=== PATIENT | male | born 1960 | race Caucasian/White ===

== ENCOUNTER 2021-04-06 13:14 | Inpatient (IN) | payer OTHER ==
[~2021-04-06] VITALS: Ht 152.4 cm; Wt 81.6 kg
[2021-04-06 13:44] VITALS: BP 112/92
[2021-04-06 14:45] LABS: ABSOLUTE NEUTROPHILS 6.6 thou/uL (1.4-8.2); EOSINOPHILS 3.5 % (0.0-3.0); HEMATOCRIT 48.1 % (42.0-52.0); HEMOGLOBIN 15.1 gm/dL (14.0-18.0); LYMPHOCYTES 21.7 % (24.0-44.0); MCH 27.9 pg (26.0-34.0); MCHC 31.4 g/dL (28.0-37.0); MCV 88.6 fL (80.0-100.0); MONOCYTES 9.6 % (1.0-8.0); PLATELET COUNT 307 thou/uL (150-400); POLYS 64.2 % (36.0-66.0); RBC 5.43 mil/uL (4.50-6.00); RDW 15.7 % (10.5-14.5); WBC 10.3 thou/uL (4.0-11.0)
[2021-04-06 14:46] LABS: CALCIUM 8.8 mg/dL (8.5-10.1); CREATININE 1.7 mg/dL (0.7-1.3); POTASSIUM 4.6 mmol/L (3.5-5.1)
[2021-04-06 14:55] LABS: ALBUMIN 3.5 g/dL (3.4-5.0); MAGNESIUM 2.2 mg/dL (1.8-2.4); TOTAL BILIRUBIN 0.6 mg/dL (0.2-1.0); TOTAL PROTEIN 7.2 g/dL (6.4-8.2)
[2021-04-06] MEDS ORDERED: NOHOMEMEDICATIONS (15:34)
[2021-04-06 16:48] LABS: URINE BILIRUBIN NEGATIVE (Negative); URINE BLOOD NEGATIVE (Negative); URINE CLARITY CLEAR; URINE COLOR YELLOW; URINE GLUCOSE-RANDOM* NEGATIVE (Negative); URINE KETONES NEGATIVE (Negative); URINE LEUKOCYTES-REFLEX NEGATIVE (Negative); URINE NITRITE-REFLEX NEGATIVE (Negative); URINE PROTEIN (DIPSTICK) NEGATIVE (Negative); URINE UROBILINOGEN 0.2 E.U./dl (0.2-1.0)
[2021-04-06 16:50] VITALS: BP 129/90
[2021-04-06 19:26] VITALS: BP 140/95
--- NOTE | 2021-04-06 19:40 | NUR ---
Pt. arrived to the unit fro the emergency room accompanied by and ER staff. He is alert and oriented and is on room air. He offers no c/o shortness of air. Admission assessment and history is completed.
[2021-04-06 20:00] VITALS: BP 147/90
--- NOTE | 2021-04-07 04:05 | NUR ---
Pt. rested quietly at intervals during the night. Prn Xanax given for anxiety (see emar) with some relief noted. He did spit up a small mucous plug of blood. Breathing treatments administered which have been helpful with his breathing. Lower legs being elevated. Bed alarm is on as pt. is a little shakey from the steriods. Urinating without difficulty.
[2021-04-07 05:16] LABS: CALCIUM 8.4 mg/dL (8.5-10.1); CREATININE 1.5 mg/dL (0.7-1.3); POTASSIUM 4.2 mmol/L (3.5-5.1)
[2021-04-07 08:41] VITALS: BP 127/84
--- NOTE | 2021-04-07 12:18 | NUR ---
ASSUMED PT CARE THIS AM. PT A&OX4, ABLE TO MAKE NEEDS KNOWN. PATIENT HAS A COUGH. WHEEZES NOTED IN LUNG BASES. IV PATENT, FLUIDS INFUSING. PATIENT REMAINS CONTINENT, USING A URINAL NEEDED. PATIENT REMAINS ON ROOM AIR. MEDICATIONS TAKEN WITHOUT ISSUE. PATIENT REPORTS CONSTIPATION, GAVE SUPPOSITORY. FALL PRECAUTIONS ARE IN PLACE, CALL LIGHT WITHIN REACH.
--- NOTE | 2021-04-07 15:08 | EKG ---
[address] [address] ELECTROCARDIOGRAM REPORT Name: CORIE MELENDEZ Room #: 459- ADM IN M.R.#: [id number] Admission: 04/06/21 Attend Phys: Janes Cabrales MD Discharge: Date of : 58 Report #: [id number] [facility] ED Test Date: 2021-04-06 Test Time: 14:04:15 Pat Name: CORIE MELENDEZ Department: Room: 459 P Gender: M Business Director: SONYA : 1960 Requested By: Farheen Ware Order Number: [id number] : Dat Arellano Measurements Intervals [place] Rate: 123 P: 46 AL: 150 QRS: -26 QRSD: 81 T: 127 QT: 310 QTc: 444 Interpretive Statements Sinus tachycardia Atrial premature complex Probable left atrial enlargement Borderline left axis deviation Nonspecific T abnormalities, lateral leads Baseline wander in lead(s) I,II,aVR,V3 No previous ECG available for comparison Electronically Signed On 04-07-2021 15:08:11 CDT by Dat Arellano [email or web address] <ELECTRONICALLY SIGNED> By: Dat Arellano MD, [facility] 04/07/21 1508 1404 1404 Dat Arellano MD, [facility] /EPI
--- NOTE | 2021-04-07 15:32 | NUR ---
PT ADMITTED RELATED TO RLL PNEUMONIA, OLIVIA, AND EDEMA. CM REVIEWED CHART AND SPOKE WITH CARE TEAM. CM MET WITH PT AND SPOUSE AT BEDSIDE THIS DAY. PT APPEARED TO BE A&0 X4. CM ROLE INTRODUCED. PT INDICATED HE AND SPOUSE LIVE IN A HOUSE WITH 3 STEPS TO ENTER AND NO STEPS INSIDE. 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 PT INDICATED NO DME OR HH HX. PT WITHOUT PCP. PT WAS SEEN BY KAREN WITH [facility]. CM INDICATED THAT CM CAN PROVIDE SAFTEY NET CLINIC PACKET FOR ESTABLISHING WITH FOLLOW UP CARES UPON DC. PT WILL LIKELY NEED MEDICATIONS VOUCHERED UPON DC. CM FOLLOWING REGARDING DC PLANNING. CARE TEAM INDICATED THAT PT WILL LIKELY BE DC READY TOMORROW WEDNESDAY.
== END 2021-04-07 18:11 | disposition left against medical advice (07) | DRG 193 ==
LOC: ER 13:14 → EROBS 17:23 → 4W 19:29
PROVIDERS: Physician Assistant; ADMIT Internal Medicine; ATTEND Internal Medicine
DX: J18.9 Pneumonia, unspecified organism (principal); J96.01 Acute respiratory failure with hypoxia; J44.0 Chronic obstructive pulmonary disease with (acute) lower respiratory infection; J44.1 Chronic obstructive pulmonary disease with (acute) exacerbation; N17.9 Acute kidney failure, unspecified; I10 Essential (primary) hypertension; Z20.822 Contact with and (suspected) exposure to COVID-19; Z79.899 Other long term (current) drug therapy; Z53.29 Procedure and treatment not carried out because of patient's decision for other reasons; F17.210 Nicotine dependence, cigarettes, uncomplicated; E66.01 Morbid (severe) obesity due to excess calories; Z68.35 Body mass index [BMI] 35.0-35.9, adult
CPT/HCPCS: 10045

== ENCOUNTER 2021-04-17 23:25 | Inpatient (IN) | payer OTHER ==
[~2021-04-17] VITALS: Ht 175.3 cm; Wt 135.7 kg
[~2021-04-17 23:25] MED LIST: NOHOMEMEDICATIONS
[2021-04-17 23:28] VITALS: BP 142/98
[2021-04-18 00:17] LABS: ABSOLUTE NEUTROPHILS 10.5 thou/uL (1.4-8.2); BASOPHILS 0.9 % (0.0-2.0); EOSINOPHILS 0.3 % (0.0-3.0); HEMATOCRIT 47.6 % (42.0-52.0); HEMOGLOBIN 15.3 gm/dL (14.0-18.0); LYMPHOCYTES 13.6 % (24.0-44.0); MCH 28.1 pg (26.0-34.0); MCHC 32.2 g/dL (28.0-37.0); MCV 87.4 fL (80.0-100.0); MONOCYTES 7.4 % (1.0-8.0); PLATELET COUNT 295 thou/uL (150-400); POLYS 77.8 % (36.0-66.0); RBC 5.45 mil/uL (4.50-6.00); WBC 13.5 thou/uL (4.0-11.0)
[2021-04-18 00:54] LABS: CALCIUM 7.4 mg/dL (8.5-10.1); CREATININE 1.6 mg/dL (0.7-1.3); POTASSIUM 5.4 mmol/L (3.5-5.1)
--- NOTE | 2021-04-18 06:53 | NUR ---
ATTEMPTED REPORT AT 0653 WHICH WAS REFUSED BY RECEIVING FLOOR. THEY HAVE RECEIVED A FAXED COPY OF ED HANDOFF SUMMARY. I GAVE REPORT TO AM ARCHITECTURAL MANAGERANDREIA HU.
[2021-04-18 07:20] VITALS: BP 133/91
[2021-04-18 08:30] VITALS: BP 143/96
--- NOTE | 2021-04-18 09:19 | EKG ---
[address] [place] [address] ELECTROCARDIOGRAM REPORT Name: CORIE MELENDEZ Room #: 457-P ADM IN M.R.#: [id number] Admission: 04/18/21 Attend Phys: Janes Cabrales MD Discharge: Date of : 58 Report #: [id number] [facility] ED Test Date: 2021-04-18 Test Time: 00:22:50 Pat Name: CORIE MELENDEZ Department: Room: [facility] Gender: M Information Delivery Analyst: karan wilkes : 1960 Requested By: Kev King Order Number: [id number] MD: Praneeth Han Measurements Intervals [place] Rate: 115 P: 44 RI: 163 QRS: -25 QRSD: 85 T: 122 QT: 311 QTc: 430 Interpretive Statements Sinus tachycardia Probable left atrial enlargement Borderline left axis deviation Nonspecific T abnormalities, lateral leads Baseline wander in lead(s) II,III,aVF Compared to ECG 04/06/2021 14:04:15 Atrial premature complex(es) no longer present T-wave abnormality still present Electronically Signed On 04-18-2021 9:19:21 CDT by Praneeth Han [email or web address] <ELECTRONICALLY SIGNED> By: Praneeth Han MD 04/18/2119 Praneeth Han MD /EPI
[2021-04-18 11:27] VITALS: BP 135/90
--- NOTE | 2021-04-18 11:35 | NUR ---
New to unit,DX COPD, SOA and CHF. Cm visited with ade at bedside. Intro to cm and dcp. Spoke with Kim via phone call, # . He was just here on 04/07 and left AMA. He lives at home with spouse, he independent when feeling ok, not been able to work in while, no insurance, needs to talk with [employer] about disability. Has nebulizer at home but no medication to go in it, no home oxygen. Drives. No rehab or hh in the past. No anticipated dc over the weekend.
--- NOTE | 2021-04-18 14:34 | 2DMMODE ---
[facility] [address] [place] [address] 2 D/M-MODE ECHOCARDIOGRAM Name: CORIE MELENDEZ Seng Room #: 457-P ADM IN M.R.#: [id number] Admission: 04/18/21 Attend Phys: Janes Cabrales MD Discharge: Date of : 58 Report #: [id number] THIS REPORT FOR: cc: FAM - No family physician/PCP FAM - No family physician/PCP Praneeth Han MD ~ APPROVED REPORT Study performed: 04/18/2021 13:40:11 EXAM: Comprehensive 2D, Doppler, and color-flow Echocardiogram Patient Location: Bedside Room #: [facility] Status: routine BSA: 2.08 HR: 112 bpm BP: 135/90 mmHg Rhythm: Tachycardia Other Information Study Quality: Good Indications Congestive Heart Failure COPD Dyspnea Cardiomyopathy 2D Dimensions RVDd: 50.07 mm IVSd: 8.80 (7-11mm) LVOT Diam: 20.44 (18-24mm) LVDd: 59.98 mm PWd: 8.42 (7-11mm) Ascending Ao: 28.67 (22-36mm) LVDs: 55.05 (25-40mm) Left Atrium: 40.66 (27-40mm) Aortic Root: 31.25 mm IVC: 25.00 mm Volumes Left Atrial Volume (Systole) Single Plane 4CH: 69.20 mL Single Plane 2CH: 53.40 mL LA ESV Index: 32.00 mL/m2 Aortic Valve AoV Peak Andrey.: 0.86 m/s [facility] [address] [place] [address] 2 D/M-MODE ECHOCARDIOGRAM Name: CORIE MELENDEZ Room #: 457-P ADM IN [place].#: [id number] Admission: 04/18/21 Attend Phys: Janes Cabrales MD Discharge: Date of : 58 Report #: [id number] AO Peak Gr.: 2.98 mmHg LVOT Max P.37 mmHg LVOT Max V: 0.59 m/s LETTY Vmax: 2.22 cm2 Pulmonary Valve PV Peak Andrey.: 0.69 m/s PV Peak Gr.: 1.91 mmHg Tricuspid Valve TR Peak Andrey.: 2.82 m/s TR Peak Gr.: 31.87 mmHg PA Pressure: 42.00 mmHg Left Ventricle Left ventricle is dilated. There is severe global hypokinesis of the left ventricle. There is normal left ventricular wall thickness. Left ventricular ejection fraction is severely decreased. LVEF is 20-25%. The diastolic function is abnormal. Right Ventricle Right ventricle is dilated. Atria Left atrium is mildly dilated. Right atrium is dilated. Aortic Valve The aortic valve is normal in structure. No aortic regurgitation is present. There is no aortic valvular stenosis. Mitral Valve The mitral valve is normal in structure. Moderate to severe mitral regurgitation No evidence of mitral valve stenosis. Tricuspid Valve The tricuspid valve is normal in structure. There is moderate tricuspid regurgitation. Estimated PAP 40 mmHg. There is moderate pulmonary hypertension. Pulmonic Valve The pulmonary valve is normal in structure. There is no pulmonic valvular regurgitation. Great Vessels The aortic root is normal in size. IVC is dilated and collapses <50% with inspiration. Pericardium [facility] [address] [place] [address] 2 D/M-MODE ECHOCARDIOGRAM Name: CORIE MELENDEZ Room #: 457-P ADM IN M.R.#: [id number] Admission: 04/18/21 Attend Phys: Janes Cabrales MD Discharge: Date of : 58 Report #: [id number] There is no pericardial effusion. <Conclusion> Left ventricle is dilated. There is normal left ventricular wall thickness. Left ventricular ejection fraction is severely decreased. Right ventricle is dilated. Left atrium is mildly dilated. The aortic valve is normal in structure. Moderate to severe mitral regurgitation There is moderate tricuspid regurgitation. Estimated PAP 40 mmHg. <ELECTRONICALLY SIGNED> By: Praneeth Han MD 04/18/21 1434 1434 143 Praneeth Han MD /INF
--- NOTE | 2021-04-18 15:17 | NUR ---
Pt arrived to floor from emergency room per cart at 0825 in stable condition. Assessment completed.vss. Admission hx and car plan completed.Pt tolerated meds and diet.Around 1500,pt had panic attack and wanted somthing to relax him Dr Cabrales notified ,order received.Xanax given with relief.RT came and breathing tx given. Will continue to monitor.
[2021-04-18 15:36] VITALS: BP 118/92
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
[2021-04-18 19:45] LABS: CALCIUM 8.6 mg/dL (8.5-10.1); CREATININE 1.8 mg/dL (0.7-1.3)
[2021-04-18 19:46] LABS: POTASSIUM 4.4 mmol/L (3.5-5.1)
[2021-04-18 21:10] VITALS: BP 112/81
[2021-04-18 23:41] VITALS: BP 142/77
[2021-04-19] VITALS (39 sets, daily range): BP systolic 56–124; BP diastolic 10–83
--- NOTE | 2021-04-19 03:42 | NUR ---
ASSUMED CARE OF PT AT SHIFT CHANGE. PT IS AOX4 AND LETS NEEDS BE KNOWN. FALL PRECAUTION IN PLACE. 2L O2 VIA NC CONTINUED. PT DENIED PAIN AND NAUSEA. PT REPORTED ANXIETY AND HAVING PANIC ATTACKS; OT ATIVAN ORDERED AND GIVEN. PT REPORTS BEING CONSTIPATED. PT WAS ABLE TO GET COMFORTABLE AND SLEEP PART OF THE SHIFT. VSS AND NO S/S OF ACUTE DISTRESS. WILL CONTINUE TO MONITOR.
[2021-04-19 06:02] LABS: ABSOLUTE NEUTROPHILS 17.3 thou/uL (1.4-8.2); BASOPHILS 0.2 % (0.0-2.0); HEMATOCRIT 49.4 % (42.0-52.0); HEMOGLOBIN 15.9 gm/dL (14.0-18.0); LYMPHOCYTES 5.4 % (24.0-44.0); MCH 28.2 pg (26.0-34.0); MCHC 32.2 g/dL (28.0-37.0); MCV 87.5 fL (80.0-100.0); MONOCYTES 2.3 % (1.0-8.0); PLATELET COUNT 253 thou/uL (150-400); POLYS 92.1 % (36.0-66.0); RBC 5.65 mil/uL (4.50-6.00); WBC 18.8 thou/uL (4.0-11.0)
[2021-04-19 06:42] LABS: POTASSIUM 4.6 mmol/L (3.5-5.1)
--- NOTE | 2021-04-19 11:23 | EKG ---
[place] [address] [facility] [place] [address] ELECTROCARDIOGRAM REPORT Name: CORIE MELENDEZ Room #: 457-P ADM IN M.R.#: [id number] Admission: 04/18/21 Attend Phys: Janes Cabrales MD Discharge: Date of : 58 Report #: [id number] [facility] Test Date: 2021-04-19 Test Time: 10:15:05 Pat Name: CORIE MELENDEZ Department: Room: 457 P Gender: M Career And Transition Teacher: JACKIE : 1960 Requested By: Praneeth Han Order Number: [id number] MD: Praneeth Han Measurements Intervals [place] Rate: 88 P: 63 OR: 157 QRS: -11 QRSD: 89 T: 158 QT: 414 QTc: 501 Interpretive Statements Sinus rhythm Ventricular premature complex Probable left atrial enlargement Abnrm T, consider ischemia, anterolateral lds Prolonged QT interval Baseline wander in lead(s) I,II,aVR,aVL,aVF,V1,V2,V3,V4,V5,V6 Compared to ECG 04/18/2021 00:22:50 No significant change Electronically Signed On 04-19-2021 11:23:42 CDT by Praneeth Han [email or web address] <ELECTRONICALLY SIGNED> By: Praneeth Han MD 04/19/21 1123 1015 1015 Praneeth Han MD /EPI
--- NOTE | 2021-04-19 13:33 | NUR ---
Assumed pt care at 7am. Pt in and out of bed to bathroom with sba.Assessment completed.vss. Hr was in the 90's per cardiac technologist. Dr Han and Keron here,order noted.Pt took shower and had large bm after given dulcolax supp. At 1255,pt was up in chair and stated that he wanted to go home. Rn encouraged pt to stay and received iv antibiotic and get well this admission before dc home. Dr Cabrales notified.At 1300,electrical project manager was with pt replacing cardiac technologist.Pt was urinating on the floor. and passed out. After giving sternal rubb,pt woke up.At 1307,code blue activated when pt became unresponsive and had no pulse. See code blue summary for details.At 1333,pt sent to icu. Report given to Vargas wilkes in icu.Pt called but no response. message left.
--- NOTE | 2021-04-19 14:54 | NUR ---
VAT PLACED LT TLIJ FOR SP CODE.
[2021-04-19 16:12] LABS: BE(vivo) -2.3 mmol/L (-2 to +3); PCO2 41.5 mmHg (35.0-45.0); PO2 330.1 mmHg (80.0-100.0); pH 7.362 (7.360-7.450); sO2 99.7 % (92.0-98.0)
--- NOTE | 2021-04-19 16:38 | NUR ---
PATIENT ARRIVED TO ICU AT 1345 ON VENTILATOR. PATIENT'S BELONGINGS ACCOUNTED FOR.
--- NOTE | 2021-04-19 18:55 | HC ---
[facility] [place] [address] CONSULTATION Name: CORIE MELENDEZ Room #: 244-P ADM IN M.R.#: [id number] Admission: 04/18/21 Attend Phys: Janes Cabrales MD Discharge: Date of : 58 Report #: [id number] THIS REPORT FOR: cc: DANDRE - No family physician/PCP FAM - No family physician/PCP Praneeth Han MD ~ DATE OF SERVICE: 04/19/2021 CARDIOLOGY CONSULTATION INDICATION: Nonsustained VT. HISTORY OF PRESENT ILLNESS: This is a 60-year-old gentleman with a history of COPD, CVA, noncompliance, hypertension and tobacco abuse, who was admitted for shortness of breath and lower extremity edema. He had previously been admitted a week ago for the same indication, but signed out AMA. Apparently, he had a similar situation over at [facility]. Over the past several months, he has noticed increasing dyspnea with minimal activities as well as orthopnea. There is no history of chest pains, fever, nausea or diarrhea. He does admit to constipation. An echo revealed severe LV dysfunction with moderately severe mitral regurgitation. He was started on Lasix with an improvement in symptoms. On telemetry, he did have nonsustained VT, clinically asymptomatic. PAST MEDICAL HISTORY: COPD, CVA, hypertension, noncompliance. ALLERGIES: None. HOME MEDICATIONS: None. SOCIAL HISTORY: Positive tobacco use, maybe half a pack to 1 pack per day. FAMILY HISTORY: Negative for premature CAD. REVIEW OF SYSTEMS: A full 10-point review of systems performed. Only the pertinent positives and negatives are described in the HPI. PHYSICAL EXAMINATION: VITAL SIGNS: Blood pressure is 100/70, heart rate is 80 beats per minute. GENERAL APPEARANCE: This is a well-developed, well-nourished male in no acute respiratory distress. HEENT: Normocephalic, atraumatic. Oral mucosa moist. NECK: Supple. LUNGS: Diminished breath sounds diffusely, few rhonchi. CARDIAC: Regular rate and rhythm, S1, S2 positive, 1/6 systolic murmur. ABDOMEN: Soft, nontender. EXTREMITIES: 1-2+ bilateral lower extremity edema. [facility] [address] [place] [address] CONSULTATION Name: CORIE MELENDEZ Room #: 244-P ADM IN M.R.#: [id number] Admission: 04/18/21 Attend Phys: Janes Cabrales MD Discharge: Date of : 58 Report #: [id number] ECG reveals sinus tachycardia, nonspecific T-wave abnormality. LABORATORY VALUES: White count is 18.8, hemoglobin is 15.9. Creatinine was 1.6, now 2.0. Troponin is negative x 2. ASSESSMENT AND PLAN: 1. Congestive heart failure, this is the first diagnosis for this patient. Echo findings reveal severe left ventricular dysfunction, etiology unknown at this time. Initial troponin level was negative, and there are no acute ST segment changes. We will eventually need an ischemic evaluation, although an angiogram would be difficult as his creatinine is rising. May need to undergo a pharmacologic nuclear stress test. 2. Cardiomyopathy, will start on guideline directed medical therapy including beta linette and DENNY inhibitor. Since the creatinine is rising, would not start an DENNY inhibitor at this time. 3. Nonsustained ventricular tachycardia. Clinically, asymptomatic. We will start with beta linette therapy at this time. Keep potassium greater than 4.0. 4. Edema, improved with diuretic therapy, would lower the dose of Lasix in view of low blood pressure. 5. Chronic obstructive pulmonary disease, complete smoking cessation advised. Consider pulmonary evaluation. 6. Noncompliance, discussed the importance of compliance. <ELECTRONICALLY SIGNED> By: Praneeth Han MD 04/19/21 1855 0741 0801 Praneeth Han MD /nt
[2021-04-20] VITALS (83 sets, daily range): BP systolic 47–137; BP diastolic 22–91
[2021-04-20 04:27] LABS: CALCIUM 8.3 mg/dL (8.5-10.1); CREATININE 2.2 mg/dL (0.7-1.3); MAGNESIUM 2.2 mg/dL (1.8-2.4); POTASSIUM 3.8 mmol/L (3.5-5.1)
[2021-04-20 04:33] LABS: HEMATOCRIT 46.5 % (42.0-52.0); HEMOGLOBIN 15.2 gm/dL (14.0-18.0); MCH 28.3 pg (26.0-34.0); MCHC 32.7 g/dL (28.0-37.0); MCV 86.7 fL (80.0-100.0); RBC 5.36 mil/uL (4.50-6.00); RDW 15.4 % (10.5-14.5); WBC 18.1 thou/uL (4.0-11.0)
[2021-04-20 08:09] LABS: BE(vivo) 5.1 mmol/L (-2 to +3); HCO3 28.5 mmol/L (22.0-26.0); PCO2 38.1 mmHg (35.0-45.0); PO2 79.6 mmHg (80.0-100.0); pH 7.492 (7.360-7.450); sO2 96.6 % (92.0-98.0)
--- NOTE | 2021-04-20 11:53 | EKG ---
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: ZZ : 1960 Requested By: Janes Cabrales Order Number: [id number] MD: Praneeth Han Measurements Intervals [place] Rate: 79 P: 34 WV: 151 QRS: -2 QRSD: 195 T: 193 QT: 479 QTc: 550 Interpretive Statements Sinus rhythm Ventricular premature complex T wave inversions in the anterolateral leads, rule out ischemia Compared to ECG 04/19/2021 14:01:01 Ischemia present Electronically Signed On 04-20-2021 11:53:43 CDT by Praneeth Han [email or web address] <ELECTRONICALLY SIGNED> By: Praneeth Han MD 04/20/21 1153 2140 2140 MD ARABELLA Beard
--- NOTE | 2021-04-20 11:56 | EKG ---
[place] [address] [facility] [place] [address] ELECTROCARDIOGRAM REPORT Name: CORIE MELENDEZ Room #: 244-P ADM IN M.R.#: [id number] Admission: 04/18/21 Attend Phys: Janes Cabrales MD Discharge: Date of : 58 Report #: [id number] [facility] Test Date: 2021-04-19 Test Time: 14:01:01 Pat Name: CORIE MELENDEZ Department: Room: 244 P Gender: M Guidance Services Coordinator: SG : 1960 Requested By: Janes Cabrales Order Number: [id number] MD: Praneeth Han Measurements Intervals [place] Rate: 89 P: 45 GA: 161 QRS: -25 QRSD: 88 T: 147 QT: 434 QTc: 529 Interpretive Statements Sinus rhythm Multiple ventricular premature complexes Probable left atrial enlargement Borderline left axis deviation Low voltage, extremity leads Abnrm T, consider ischemia, anterolateral lds Prolonged QT interval Baseline wander in lead(s) I,II,aVR Compared to ECG 04/19/2021 10:15:05 Low QRS voltage now present Possible ischemia still present Electronically Signed On 04-20-2021 11:56:28 CDT by Praneeth Han [email or web address] <ELECTRONICALLY SIGNED> By: Praneeth Han MD 04/20/21 1156 1401 1401 Praneeth Han MD /EPI
[2021-04-20 13:56] LABS: CALCIUM 8.2 mg/dL (8.5-10.1); CREATININE 2.2 mg/dL (0.7-1.3); POTASSIUM 3.8 mmol/L (3.5-5.1)
[2021-04-20 17:08] LABS: URINE BILIRUBIN NEGATIVE (Negative); URINE BLOOD 3+ (Negative); URINE CLARITY CLEAR; URINE COLOR YELLOW; URINE GLUCOSE-RANDOM* NEGATIVE (Negative); URINE KETONES NEGATIVE (Negative); URINE LEUKOCYTES-REFLEX NEGATIVE (Negative); URINE NITRITE-REFLEX NEGATIVE (Negative); URINE PROTEIN (DIPSTICK) NEGATIVE (Negative); URINE UROBILINOGEN 0.2 E.U./dl (0.2-1.0)
[2021-04-20 17:21] LABS: URIC ACID CRYSTALS >10 Many /LPF (None Seen)
[2021-04-20 17:22] LABS: BACTERIA-REFLEX None Seen /HPF (None Seen); CASTS None Seen /LPF (None Seen); SQUAMOUS None Seen /LPF (0-3); URINE RBC >20 Many /HPF (NONE SEEN); URINE WBC-REFLEX 0-5 Rare /HPF (0-5)
--- NOTE | 2021-04-20 19:07 | NUR ---
PT IS SLOWLY PROGRESSING TO THE PLAN OF CARE EVIDENCED BY DECREASED OXYGENATION NEED. LEVOPHED TURNED OFF.
--- NOTE | 2021-04-20 22:53 | NUR ---
PT SLOWLY PROGRESSING TOWARDS POC. LEVO IS OFF WITH MAP>60 BP 99/60'S, AFEBRILE. INFUSING PROPOFOL @ 10 MCG/KG/MIN, FENTANAYL @ 50 MCG/HR VIA LEFT TL IJ. UO ADEQUATE AMTS, DK YELLOW. MINIMAL AMTS OF ETT SECRETIONS, THIN AND BLOOD TINGED. SCANT AMTS OF ORAL SECRETIONS. VENT SETTINGS: PEE8, RATE 16, TV 550, AND FIO2 30%. FOLLOWS SIMPLE COMMANDS, SQUEEZE FINGERS BILATERALLY, RAISE LE AND NODS APPROPRIATELY YES/NO. SR WITH OCCASSIONAL PVC'S. ISOLATION FOR MRSA IN NARES. OG WITH LIS. WILL CONTINUE TO MONITOR.
[2021-04-21] VITALS (41 sets, daily range): BP systolic 9–108; BP diastolic 60–78
[2021-04-21 03:46] LABS: ABSOLUTE NEUTROPHILS 14.8 thou/uL (1.4-8.2); BASOPHILS 0.1 % (0.0-2.0); HEMATOCRIT 42.7 % (42.0-52.0); HEMOGLOBIN 13.7 gm/dL (14.0-18.0); LYMPHOCYTES 2.5 % (24.0-44.0); MCH 28.2 pg (26.0-34.0); MCHC 32.1 g/dL (28.0-37.0); MONOCYTES 2.9 % (1.0-8.0); POLYS 94.5 % (36.0-66.0); RBC 4.86 mil/uL (4.50-6.00); RDW 15.7 % (10.5-14.5); WBC 15.7 thou/uL (4.0-11.0)
[2021-04-21 03:47] LABS: PLATELET COUNT 157 thou/uL (150-400)
[2021-04-21 04:02] LABS: ALBUMIN 2.6 g/dL (3.4-5.0); CALCIUM 8.1 mg/dL (8.5-10.1); CREATININE 1.9 mg/dL (0.7-1.3); MAGNESIUM 2.5 mg/dL (1.8-2.4); POTASSIUM 3.7 mmol/L (3.5-5.1); TOTAL BILIRUBIN 0.9 mg/dL (0.2-1.0); TOTAL PROTEIN 4.9 g/dL (6.4-8.2)
[2021-04-21 05:11] LABS: HCO3 29.2 mmol/L (22.0-26.0); PCO2 45.7 mmHg (35.0-45.0); PO2 76.2 mmHg (80.0-100.0); pH 7.423 (7.360-7.450); sO2 95.4 % (92.0-98.0)
--- NOTE | 2021-04-21 07:00 | NUR ---
RECEIVED OT EVALUATION ORDER. CODE BLUE CALLED AND PATIENT INTUBATED AND IS NOW IN THE ICU. WILL PLACE PATIENT ON HOLD AND AWAIT NEW ORDERS WHEN PATIENT IS MEDICALLY APPROPRIATE.
--- NOTE | 2021-04-21 08:18 | NUR ---
Pt TRANSFERRED TO ICU. WILL PLACE ON HOLD AND AWAIT NEW ORDERS WHEN APPROPRIATE
--- NOTE | 2021-04-21 11:00 | NUR ---
Discussed during los and unit rounds. Required intubation 04/19 and moved from 4w to ICU. Nutritional support. Requested for dpoa packet, education that must be off vent or wake to make his needs know. Will cont. following as needed for dc needs.
--- NOTE | 2021-04-21 11:30 | NUR ---
Patient's sister, Jazlyn Kahn, updated on patient condition and plan of care. Questions answered.
[2021-04-22] VITALS (32 sets, daily range): BP systolic 73–128; BP diastolic 50–94
[2021-04-22 05:20] LABS: CALCIUM 8.4 mg/dL (8.5-10.1); CREATININE 1.7 mg/dL (0.7-1.3); HEMATOCRIT 42.9 % (42.0-52.0); HEMOGLOBIN 13.7 gm/dL (14.0-18.0); MCHC 31.9 g/dL (28.0-37.0); MCV 87.6 fL (80.0-100.0); POTASSIUM 4.2 mmol/L (3.5-5.1); RBC 4.9 mil/uL (4.50-6.00); RDW 15.8 % (10.5-14.5); WBC 13.2 thou/uL (4.0-11.0)
--- NOTE | 2021-04-22 08:49 | NUR ---
ASSUMED CARE OF PT AT 0700. CARDIOLOGY AT BEDSIDE AT 0845. NO NEW ORDERS GIVEN AT THIS TIME.
--- NOTE | 2021-04-22 13:18 | NUR ---
PT SELF EXTUBATED AT 1315. O2 SATURATION AT 96% ON 2L NC.
--- NOTE | 2021-04-22 15:31 | NUR ---
UPDATED PT GIRLFRIEND FITZ AND SISTER CHILANGO ON PATEINTS CURRENT CONDITION. ANSWERED ALL QUESTIONS.
[2021-04-23] VITALS (12 sets, daily range): BP systolic 104–123; BP diastolic 75–87
--- NOTE | 2021-04-23 07:59 | NUR ---
ASSUMED CARE AT 1900. PT TOLERATING ORAL LIQUIDS WITHOUT ISSUE OVERNIGHT. AFEBRILE, IMPROVING MENTAL STATUS OVERNIGHT. PT READY TO EAT BREAKFAST THIS MORNING. HAD A 5-BEAT BURST SVT AND A 10 BEAT BURST SVT OVERNIGHT, PT DENIED CHEST PAIN OR SOB DURING THESE EVENTS. PT PROGRESSING TOWARDS GOALS.
--- NOTE | 2021-04-23 10:34 | NUR ---
PT IS PROGRESSING TOWARDS DISCHARGE, TOLERATING OFF OF VENTILATION, CURRENTLY ON 2L/NC, LUNG SOUNDS ARE COARSE BUT SATTING WELL. HEMATURIA NOTED DURING PUSHCART PEDDLER, NOTICED BY CARDIOLOGY, UNKNOWN ONSET PER THIS RN BUT WAS REPORTED TO CARDIOLOGY, NOW BEING LOOKED AT, UROLOGY CONSULTED, SAMI HU CALLED AT 1030 SPOKE OVER, CBC/BMP ENROUTE, SAW THE PATIENT, PER CARDIOLOGY WILL MOVE FORTH WITH CARDIAC CATH ONCE RENAL/UROLOGY CLEARS PATIENT. DPOA/SISTER CHILANGO CALLED, WANTED UPDATES, UPDATES PROVIDED, VERBALIZED SATIFSFACTION, WANTED RN TO COMMUNICATE TO PT THAT HE IS LOVED AND CARED FOR, PT REPORTED TO, PT ALSO VERBALIZING LOVING STAFF MEMBERS AND WANTING TO MOVE DOWN TO THE FLOOR WHEN POSSIBLE. AWAITING ON PULMONLOGIST'S DISCRETION TO TRANSFER. CONTINUING TO MONITOR.
[2021-04-23 10:52] LABS: HEMATOCRIT 46.7 % (42.0-52.0); HEMOGLOBIN 14.6 gm/dL (14.0-18.0); MCH 27.5 pg (26.0-34.0); MCHC 31.2 g/dL (28.0-37.0); MCV 88.1 fL (80.0-100.0); RBC 5.3 mil/uL (4.50-6.00)
[2021-04-23 11:12] LABS: CALCIUM 8.2 mg/dL (8.5-10.1); CREATININE 1.9 mg/dL (0.7-1.3); POTASSIUM 4.5 mmol/L (3.5-5.1)
--- NOTE | 2021-04-23 12:03 | NUR ---
Acute on chronic hypoxic respiratory failure now on 2L via NC and sats between 95-98%. Continues on broad spectrum antibiotics and IF for follow up cultures. Per cardiology noted as cardiac arrest with PEA managed with CPR/ACLS. Notably history of 2 previous AMA departures. S/O Allie Aldana at [phone] remains updated on condition by both nursing and MD teams. Per attending MD AM review: No change in care at this time. CM will follow for discharge needs once identified after MD review and therapy evaluations. CM asked for MD to place therapy orders.
[2021-04-24] VITALS (26 sets, daily range): BP systolic 104–148; BP diastolic 71–102
[2021-04-24 06:38] LABS: HEMOGLOBIN 14.7 gm/dL (14.0-18.0); MCH 28.1 pg (26.0-34.0); MCHC 31.9 g/dL (28.0-37.0); MCV 88.1 fL (80.0-100.0); RBC 5.22 mil/uL (4.50-6.00); RDW 16.2 % (10.5-14.5); WBC 14.7 thou/uL (4.0-11.0)
[2021-04-24 06:41] LABS: CALCIUM 8.3 mg/dL (8.5-10.1); CREATININE 1.5 mg/dL (0.7-1.3); POTASSIUM 4.4 mmol/L (3.5-5.1)
--- NOTE | 2021-04-24 10:45 | NUR ---
New order for 5n consult. On 4 L/nc and possible move out of icu today when bed opens up per los discussed with hospitalist.
--- NOTE | 2021-04-24 17:30 | NUR ---
Patient progressing towards goal. Currently on 1L NC, O2 sats stable. Patient had some hematuria at the beginning of the day, however, none since lasix was given. NSR with occasional PVCs and PACs. Patient reports feeling happy that he is able to eat "real food." Family visited all afternoon. Sister was also updated re:patient condition and current plan of care via phone.
[2021-04-25] VITALS (12 sets, daily range): BP systolic 111–149; BP diastolic 56–104
[2021-04-25 03:06] LABS: HAV IgM AB (ANTI-HAV IgM) Negative (Negative); HEPATITIS B SURFACE AG Negative (Negative); HEPATITIS C VIRUS AB <0.1 (0.0-0.9)
[2021-04-25 04:51] LABS: INR 1.17; PROTIME 12.7 Seconds (10.5-12.1)
[2021-04-25 05:31] LABS: ALBUMIN 2.6 g/dL (3.4-5.0); CREATININE 1.4 mg/dL (0.7-1.3); MAGNESIUM 2.4 mg/dL (1.8-2.4); POTASSIUM 4.9 mmol/L (3.5-5.1); TOTAL BILIRUBIN 0.9 mg/dL (0.2-1.0); TOTAL PROTEIN 5.2 g/dL (6.4-8.2)
--- NOTE | 2021-04-25 05:53 | NUR ---
PT TRANSFERED FROM THE ICU IN STABLE CONDITION.PT IS A/O X3.PT IS ON 2L OF O2 VIA NC AND HAS A MOONEY CATHETER IN PLACE.IV ACCESS LT IJ TRIPPLE LUMEN WITH ABX.V/S WNL.WILL CONTINUE TO MONITOR PER POC
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
--- NOTE | 2021-04-25 14:52 | CATHLAB ---
[facility] [address] [address] INVASIVE PROCEDURE REPORT Name: CORIE MELENDEZ Seng Room #: 201-P ADM IN M.R.#: [id number] Admission: 04/18/21 Attend Phys: Janes Cabrales MD Discharge: Date of : 58 Report #: [id number] REPORT FOR: cc: FAM - No family physician/PCP FAM - No family physician/PCP Praneeth Han MD ~ APPROVED REPORT Study performed: 04/25/2021 12:05:04 Patient Details Patient Status: In-Patient Room #: The patient is a 60 year-old male Event Personnel Praneeth Han Client Technical Support Associate, Leslie Guzmán RN RN, Becca Portillo RTR Joe, Maira Serna RTR Monitor Procedures Performed Left Heart Cath w/or w/o Coronaries [id number] [facility] Art Access - R femoral artery* [id number] Initial Mod Sed Same Phys/QHP Gr5y [id number] Hemostasis with Manual pressure Indication CHF Current Status: , Dyspnea, Cardiomyopathy, The patient presented with acute CHF, diagnosed with cardiomyopathy. Had an episode of cardiac arrest attributed to PEA. Risk Factors Chronic Lung DiseaseHypercholesterolemia, Hypertension, Tobacco History () Procedure Narrative The patient was brought urgently to the Cardiac Catheterization Laboratory and was prepped and draped in a sterile manner. The Right Groin^ was infiltrated with 1% Lidocaine subcutaneous anesthesia. A PINNACLE 4FR Sheath #[id number] sheath was inserted into the RFA^. Coronary angiography was performed using coronary diagnostic catheters. The right coronary system was accessed and visualized with a JR4 catheter. The left coronary system was accessed and visualized with a JL4 catheter. The left ventricle was accessed and visualized with a JR4 catheter. Left ventricular/Aortic Valve gradient assessed via catheter pullback. Left ventriculogram was performed in 30 degree projection. Hemostasis was obtained with manual pressure following [facility] [place] [address] INVASIVE PROCEDURE REPORT Name: CORIE MELENDEZ Room #: 201-P [facility] IN M.R.#: [id number] Admission: 04/18/21 Attend Phys: Janes Cabrales MD Discharge: Date of : 58 Report #: [id number] sheath removal without any complications. The patient tolerated the procedure well and there were no complications associated with the procedure. There was no hematoma. Intraoperative Conscious Sedation Sedation start time: 12:52 Case end Time: 13:19 Fentanyl 25 mcg Versed 0.5 mg Fluoro Time: 1.40 minutes Dose: DAP 3383.70 cGycm2 465 mGy Contrast Type and Amount: Visipaque 45 ml Coronary Angiography The patient's coronary anatomy is left dominant. Diagnostic Cath Left Main The left main artery is a large-caliber vessel, patent with no flow-limiting lesions. LAD The LAD is a moderate-sized caliber vessel, traverses the anterior wall and wraps around the apex. There is mild diffuse disease in the midsegment, 30%. Diagonal 1 This is a small to moderate-sized caliber vessel, patent with no flow-limiting lesions. Diagonal 2 This is a small to moderate-sized caliber vessel, patent with no flow-limiting lesions. Circumflex The left circumflex artery is a moderate-sized caliber vessel, dominant as it supplies the left PDA. OM1 This is a moderate-sized caliber vessel, with mild disease proximally. This vessel supplies several branches as it travels the inferolateral wall. OM2 This is a small to moderate-sized caliber vessel, patent with no flow-limiting lesions. OM3 This is a small to moderate-sized caliber vessel, patent with no flow-limiting lesions. L PDA This is a small to moderate-sized caliber vessel, patent with no flow-limiting lesions. Right Coronary This is a small, nondominant vessel. Left Ventriculography Left Ventriculography was not performed. Ejection Fraction was 25% based off patient's Echocardiogram. An LVEDP was measured and there is no gradient across the outflow tract. Hemodynamics The aortic pressure is 120/92 mmHg with a mean of 104 mmHg. The left [facility] [address] [place] [address] INVASIVE PROCEDURE REPORT Name: CORIE MELENDEZ Room #: 201-P ADM IN M.R.#: [id number] Admission: 04/18/21 Attend Phys: Janes Cabrales MD Discharge: Date of : 58 Report #: [id number] ventricular pressure is 105/22 mmHg with a mean of mmHg. The left ventricular end diastolic pressure is 32 mmHg. Pullback from the left ventricle to the aorta revealed no gradient across the aortic valve. Conclusion 1. Severe, nonischemic cardiomyopathy. 2. There is mild, nonobstructive disease in the LAD and OM1. 3. This is a left dominant system. 4. Recommend guideline directed medical therapy. <ELECTRONICALLY SIGNED> By: Praneeth Han MD 04/25/21 145 51 145 Praneeth Han MD /INF
--- NOTE | 2021-04-25 19:20 | NUR ---
PT CAME FROM TECHNOLOGY ASSISTANT. RIGHT GROIN INCISION C/D/I. NO HEMATOMA NOTED. NEW ORDERS NOTED. NO CONCERNS AT THIS TIME.
[2021-04-26] VITALS (8 sets, daily range): BP systolic 109–119; BP diastolic 78–86
[2021-04-26 05:10] LABS: HEMATOCRIT 49.9 % (42.0-52.0); HEMOGLOBIN 15.5 gm/dL (14.0-18.0); MCH 27.5 pg (26.0-34.0); MCV 88.7 fL (80.0-100.0); RBC 5.62 mil/uL (4.50-6.00); RDW 16.6 % (10.5-14.5); WBC 17.9 thou/uL (4.0-11.0)
--- NOTE | 2021-04-26 05:16 | NUR ---
SLEPT MOST OF SHIFT. NO PRESENT COMPLAINTS OF PAIN OR SHORTNESS OF AIR. TELEMTRY SHOWS SR WITH PVC'S AND OCC BURST OF VTACH WITHOUT SYMPTOMS. WORKING ON GOALS AND PLAN OF CARE FOR NOC. ASSIST TO TURN NEEDED FOR COMFORT. HAD 2 DIARRHEA LOOSE STOOLS. CONTINUE TO ASSES CLOSELY.
[2021-04-26 05:29] LABS: ALBUMIN 2.8 g/dL (3.4-5.0); CALCIUM 8.2 mg/dL (8.5-10.1); CREATININE 1.3 mg/dL (0.7-1.3); PHOSPHORUS 4.4 mg/dL (2.5-4.9); POTASSIUM 4.9 mmol/L (3.5-5.1)
--- NOTE | 2021-04-26 08:18 | NUR ---
ADMITTED TO CCU RM 213 UNDER MED/SURG TELY ON 04/25/21 AT 2345. ADMISSION ASSESSMENT DONE, DENIES S/S OF UTI, ORIENTED X 3. MONITOR SHOWS SR W/ 1 DEGREE HEART BLOCK. SLEPT WELL WHEN UNDISTURBED. AT 4AM, BP 232/98. A ERICA CLUBHOUSE MANAGER NOTIFIED AND RECEIVED ORDER FOR HYDRALAZINE 10 MG IVP Q 6 HOURS PRN FOR SBP > 160. PATIENT BEGAN VOMITING AFTER DRUG GIVEN. NOTIFIED CLUBHOUSE MANAGER AGAIN OF N/V AND RECEIVED ORDER FOR ZOFRAN 4 MG IVP Q 6 HOURS PRN N/V. BP 188/72. WILL CONTINUE TO MONITOR.
--- NOTE | 2021-04-26 18:30 | NUR ---
ASSESSMENT CHARTED. PT PLEASANT AND COOPERATIVE WITH CARES. VSS. UP IN THE CHAIR MOST OF THE SHIFT. DPOA UPDATED ON PT'S PLAN OF CARE. NO CONCERNS AT THIS TIME.
--- NOTE | 2021-04-27 02:59 | NUR ---
SLEEPING WITHOUT PRESENT COMPLAINTS. DENIES PRESENT COMPLAINTS. TURNS SELF WITH ENCOURAGEMENT. WORKING ON GOALS AND PLAN OF CARE FOR NOC. PLAN FOR THORACENTESS WEDNESDAY. CONTINUE TO ASSES CLOSELY.
[2021-04-27 04:15] VITALS: BP 109/71
[2021-04-27 04:30] LABS: CALCIUM 8.2 mg/dL (8.5-10.1); CREATININE 1.1 mg/dL (0.7-1.3); POTASSIUM 4.9 mmol/L (3.5-5.1)
[2021-04-27 07:55] VITALS: BP 116/83
[2021-04-27 11:59] VITALS: BP 119/81
[2021-04-27 15:58] VITALS: BP 97/68
[2021-04-27 19:13] VITALS: BP 125/73
[2021-04-28] VITALS (8 sets, daily range): BP systolic 115–142; BP diastolic 76–98
--- NOTE | 2021-04-28 05:58 | NUR ---
SLEPT MOST OF SHIFT. UP TO COMODE WITH ASSIST OF ONE. TYLENOL GIVEN PRN FOR PAIN. WORKING ON GOALS AND PLAN OF CARE FOR NOC. NPO PAST MN FOR AM THORACENTESIS. CONTINUE TO ASSES.
[2021-04-28] MEDS ORDERED: COREG6.25 MG PO (12:49)
[2021-04-28] MEDS ORDERED: COZAAR 25 MG TA25 M1 PO (12:49)
[2021-04-28] MEDS ORDERED: AUGMENTIN 875-1 EACH PO (12:49)
[2021-04-28] MEDS ORDERED: CELEXA10 MG PO (12:50)
[2021-04-28] MEDS ORDERED: BAYER CHEWABLE81 MG PO (12:50)
[2021-04-28] MEDS ORDERED: PREDNISONE 20 M20 M1 PO (12:50)
--- NOTE | 2021-04-28 15:38 | NUR ---
Met with patient who is adament to dc home today. Tenative plan for 5N eval. orders rec for dc home with no need for oxygen. Patient apparently fell today. His or significant other has spoken to Rn with concerns of caring for him at home. Sister has also called RN wanting patient to stay another day. Sp with patient regarding Life Vest. he reports no card left. he is unsure when rec. Sp with Tone with Zoll life vest. Reports patient needs to complete ander application. May be up to 72 hours for application approval or denial. Brea reports medicaid application filed for patient. 5n evaled patient and reports not a candidate but did talk patient to staying one more day. His son was at bedside when evaled. Patient resides with , brother and brothers children. Vouched for patient medications holding in [employer] in amount of $79.24.
[2021-04-28 16:40] LABS: TOTAL VOLUME 60 mL
[2021-04-28 16:41] LABS: CLARITY HAZY; COLOR YELLOW; SOURCE CHEST FLUID RIGHT
[2021-04-28 17:24] LABS: BF NUCLEATED CELLS 84 /mm3; BF RBC 2798 /mm3
[2021-04-28 18:37] LABS: BF MACROPHAGE 1 %; BF NEUTROPHILS 5 %
--- NOTE | 2021-04-28 19:42 | NUR ---
ASSUMED CARE SHIFT CHANGE. VSS DENIES PAIN. O2 SAT WNL 2-3L AND ROOM AIR. PT INCONTIENT OF BOWEL AND BLADDER. UP WITH PHYS THERAPY AND OT REFER TO NOTES. THORACENTESIS THIS SHIFT FLUID SENT TO LAB. UPON RETURN PT WAS ADAMENT THAT HE WAS GOING HOME AND WILL LEAVE AMA IF THERE WAS NO DISCHARGE ORDER. DR COLLIER NOTIFIED, AND TOLD THIS RN IF O2 SATS WNL ON RA PT CAN DISCHARGE. O2 SATS WNL, ORDERS RECEIVED. PT FAMILY REQUESTED TO BE CONTACTED BY DR COLLIER FOR UPDATES FAMILY WAS UPSET ABOUT PT DISCHARGING WITHOUT HAVING THE ZOLL VEST OR ANY PRESCRIPTIONS D/T NO INSURANCE. DR COLLIER INFORMED THIS RN THAT PT HAS A RIGHT TO LEAVE. AT APPROX 1355 PT FOUND KNEELING ON FLOOR, ASSISTED BACK TO BED. VSS DENIES PAIN. REMAINS ORIENTED X2 AND FORGETFUL. PT EVALUATED BY 5NORTH PER DR COLLIER ORDERS- REFER TO CONSULT NOTE. AFTER MUCH EXPLANATION AND CONVINCING FROM FAMILY/STAFF PT AGREED TO STAY AND RECEIVE MEDICAL CARE. PLAN FOR MEETING IN AM WITH FAMILY AND PHYSICIAN REGARDING POC. PT CURRENTLY IN BED WITH BED ALARM ON. DENIES NEEDS, CONT POC. REPORT PASSED TO NOC RN.
[2021-04-29 04:45] VITALS: BP 119/91
[2021-04-29 07:25] VITALS: BP 135/89
--- NOTE | 2021-04-29 07:37 | NUR ---
SLEPT MOST OF SHIFT. ANXIETY MEDS GIVEN WITH RELIEF. PATIENT DID NOT TRY TO GET OUT OF BED WITHOUT ASSISTANCE. INCONTINENT STOOL X1. SPOKE WITH DAUGHTER FOR 10 MIN THIS AM AND PASSED INFORMATION ON TO DAY RN. CONTINUE TO ASSES CLOSELY.
[2021-04-29 10:15] VITALS: BP 138/85
[2021-04-29 11:07] LABS: BODY FLUID ALBUMIN 0.9 g/dL (Not Estab.); BODY FLUID AMYLASE 19 U/L (()); BODY FLUID GLUCOSE 111 mg/dL (()); BODY FLUID LDH 101 IU/L (()); BODY FLUID PROTEIN 1.2 g/dL (())
[2021-04-29 11:45] LABS: SOURCE CHEST
--- NOTE | 2021-04-29 16:13 | NUR ---
SPOKE TO ROLAND BECKWITH ABOUT PATIENT GOING HOME BEFORE ZOLL MONITOR IS GIVEN TO PATIENT. PATIENT WILL RECEIVE THE ZOLL MONITOR TOMORROW ON 04/30. SARAI BECKWITH STATED THAT PATIENT WAS OKAY TO BE DISCHARGED TODAY AND GET THE ZOLL TOMORROW AT HOME.
[2021-04-29 16:15] VITALS: BP 122/86
--- NOTE | 2021-04-29 17:58 | NUR ---
took OVER CARE FOR THIS PATIENT AT 0700. PATIENT AGITATED WITH FAMILY AT THIS TIME. PATIENT ALERT BUT HAS PERIODS OF CONFUSION. PATIENT DENIES ANY RECENT FALLS, HOWEVER, IT WAS REPORTED PATIENT FELL YESTERDAY 04/28/2021. PLAN ON DISCHARGE THIS AFTERNOON AFTER VISITING WITH PHYSICAL AND OCCUPATIONAL THERAPY WELL GETTING FITTED FOR ZOOL MONITOR. PATIENT VERY ADAMENT ABOUT GOING HOME TODAY. PROVIDED DISCHARGE EDUCATION AND NEW MEDICATION INFORMATION GIVEN. SPOUSE PRESENT FOR DISCHARGE EDUCATION SESSION. PATIENT AND SPOUSE DID NOT HAVE ANY QUESTIONS AT THIS TIME. PATIENT DISCHARGED VIA NURSING STAFF ACCOMPANIED BY VIA PERSONAL VEHICLE VIA WHEELCHAIR.
--- NOTE | 2021-04-30 14:17 | NUR ---
Pt did not pickup scripts vouched from [facility] outpt pharmacy. Pt and spouse contacted. They indicate that he did get scripts filled at [facility] but will come strip picker from [facility] so he has two months worth. [facility] clinics discussed. They will call to schedule a new pt pcp appt with the [facility] and in the mean time use the walkin clinica at [facility]. They are familiar with both. [facility] pharmd notified and they will have scripts ready for the pt minus the atb and prenisone which are short term and he already has.
--- NOTE | 2021-04-30 17:07 | PATH ---
[facility] [address] [place] [address] PATHOLOGY RPT PROCEDURE Name: CORIE MELENDEZ Room #: 201-P DIS IN M.R.#: [id number] Admission: 04/18/21 Date of : 58 Discharge: 04/29/21 Report #: [id number] Path Case #: [id number] Note [facility] Accession Number: [id number] TESTS RESULT FLAG UNITS REF RANGE LAB Clinician Provided Cytology Information No. of containers..01 Other (Miscellaneous) Source: RIGHT PLEURAL FLUID DIAGNOSIS: 02 RIGHT PLEURAL FLUID NEGATIVE FOR MALIGNANT EPITHELIAL CELLS. REACTIVE MESOTHELIAL CELLS ARE PRESENT. THIS INTERPRETATION INCLUDES EVALUATION OF A CELL BLOCK. MILD CHRONIC INFLAMMATION. Pathologist ICD10: 02 R06.02 Signed out by: 02 Grace Barlow MD, Pathologist NPI- [id number] Performed by: 01 Mickie Noel, Director Social Welfare ([facility]) Gross description: 01 20ML, CLEAR, YELLOW /LCS 04/29/2021 1725 Local FLAG LEGEND: L-Low Normal,H-High Normal,LL-Alert Low,HH-Alert High <-Panic Low,>-Panic High,A-Abnormal,AA-Critical Abnormal Performed at: [address] [place] [address] Nathan Mike MD, [address] [id number] Grace Barlow MD, Specimen Comment: A courtesy copy of this report has been sent to [phone] Specimen Comment: Report sent to Performed at: [address], [place], [place] [id number] MD Nathan Mike MD Phone: [phone]
== END 2021-04-29 18:04 | disposition home or self-care (01) | DRG 208 ==
LOC: ER 23:25 → EROBS 04-18 01:34 → 4W 04-18 08:05 → ICU 04-19 14:12 → 4W 04-25 04:24 → 2N 04-25 12:18
PROVIDERS: Emergency Medicine; Hospitalist; Internal Medicine Cardiovascular Disease; Internal Medicine Pulmonary Disease; Nurse Practitioner Adult Health; Nurse Practitioner Family; Physician Assistant; ADMIT Internal Medicine; ATTEND Internal Medicine
DX: J96.01 Acute respiratory failure with hypoxia (principal); J18.9 Pneumonia, unspecified organism; I46.9 Cardiac arrest, cause unspecified; N17.0 Acute kidney failure with tubular necrosis; J44.1 Chronic obstructive pulmonary disease with (acute) exacerbation; J44.0 Chronic obstructive pulmonary disease with (acute) lower respiratory infection; I13.0 Hypertensive heart and chronic kidney disease with heart failure and stage 1 through stage 4 chronic kidney disease, or unspecified chronic kidney disease; I42.6 Alcoholic cardiomyopathy; I47.1 Supraventricular tachycardia; F17.210 Nicotine dependence, cigarettes, uncomplicated; F41.9 Anxiety disorder, unspecified; Z20.822 Contact with and (suspected) exposure to COVID-19; I50.9 Heart failure, unspecified; F43.20 Adjustment disorder, unspecified; F43.10 Post-traumatic stress disorder, unspecified; R53.81 Other malaise; N18.9 Chronic kidney disease, unspecified; R31.0 Gross hematuria; Z91.19 Patient's noncompliance with other medical treatment and regimen; Z86.73 Personal history of transient ischemic attack (TIA), and cerebral infarction without residual deficits; Z71.6 Tobacco abuse counseling; Z79.82 Long term (current) use of aspirin; Z79.899 Other long term (current) drug therapy
CPT/HCPCS: 10045; 10078; 10081; 10203

== ENCOUNTER → 2021-07-23 | Outpatient (CLI) | payer OTHER ==
[~2021-07-23] MED LIST changes: +AUGMENTIN 875-1 EACH PO; +BAYER CHEWABLE81 MG PO; +CELEXA10 MG PO; +COREG6.25 MG PO; +COZAAR 25 MG TA25 M1 PO; +PREDNISONE 20 M20 M1 PO
== END ==
LOC: RAD 12:52
PROVIDERS: ATTEND Pediatrics
DX: J98.11 Atelectasis (principal); J90 Pleural effusion, not elsewhere classified

== ENCOUNTER → 2021-07-30 | Outpatient (CLI) | payer OTHER ==
[2021-07-30 09:14] LABS: BE(vivo) 3.8 mmol/L (-2 to +3); HCO3 27.2 mmol/L (22.0-26.0); PCO2 37.5 mmHg (35.0-45.0); PO2 61.5 mmHg (80.0-100.0); pH 7.479 (7.360-7.450); sO2 93.2 % (92.0-98.0)
[2021-07-30 10:59] LABS: ABSOLUTE NEUTROPHILS 5.2 thou/uL (1.4-8.2); BASOPHILS 0.7 % (0.0-2.0); EOSINOPHILS 0.4 % (0.0-3.0); LYMPHOCYTES 14.3 % (24.0-44.0); MCH 29.4 pg (26.0-34.0); MCHC 32.6 g/dL (28.0-37.0); MCV 90.3 fL (80.0-100.0); MONOCYTES 7.8 % (1.0-8.0); PLATELET COUNT 226 thou/uL (150-400); POLYS 76.8 % (36.0-66.0); RBC 5.09 mil/uL (4.50-6.00); RDW 16.6 % (10.5-14.5); WBC 6.8 thou/uL (4.0-11.0)
[2021-07-30 11:09] LABS: CALCIUM 9.4 mg/dL (8.5-10.1); CREATININE 1.5 mg/dL (0.7-1.3); POTASSIUM 4.4 mmol/L (3.5-5.1)
[2021-07-30 11:22] LABS: INR 1.07; PROTIME 11.6 Seconds (10.5-12.1)
== END ==
LOC: ULTRA 08:40
PROVIDERS: ATTEND Pediatrics
DX: J90 Pleural effusion, not elsewhere classified (principal); R06.00 Dyspnea, unspecified

== ENCOUNTER → 2021-08-14 | Outpatient (CLI) | payer OTHER ==
[2021-08-14 14:07] LABS: BF NUCLEATED CELLS 1959 /mm3; BF RBC 1164 /mm3; COLOR YELLOW; TOTAL VOLUME 67 mL
[2021-08-14 14:08] LABS: CLARITY SL.CLOUDY
[2021-08-14 15:07] LABS: BF MACROPHAGE 8 %; BF NEUTROPHILS 7 %; SOURCE THORACENTESIS
[2021-08-15 09:07] LABS: SOURCE CHEST
[2021-08-15 13:08] LABS: BODY FLUID ALBUMIN 1.6 g/dL (Not Estab.); BODY FLUID AMYLASE 62 U/L (()); BODY FLUID GLUCOSE 120 mg/dL (()); BODY FLUID LDH 120 IU/L (()); BODY FLUID PROTEIN 2.5 g/dL (())
== END | disposition home or self-care (01) ==
LOC: ULTRA 10:13
PROVIDERS: ATTEND Pediatrics
DX: J90 Pleural effusion, not elsewhere classified (principal); R06.02 Shortness of breath; J44.9 Chronic obstructive pulmonary disease, unspecified; Z98.890 Other specified postprocedural states; Z79.899 Other long term (current) drug therapy; Z20.822 Contact with and (suspected) exposure to COVID-19

== ENCOUNTER → 2021-08-19 | Outpatient (CLI) | payer OTHER | LOC: RAD 14:34 | PROVIDERS: ATTEND Pediatrics | DX: J90 Pleural effusion, not elsewhere classified (principal); J98.11 Atelectasis; J84.10 Pulmonary fibrosis, unspecified ==

== ENCOUNTER → 2021-08-26 | Outpatient (CLI) | payer OTHER | LOC: SJCVC 13:00 | PROVIDERS: ATTEND Internal Medicine Cardiovascular Disease | DX: R94.31 Abnormal electrocardiogram [ECG] [EKG] (principal); R00.0 Tachycardia, unspecified; I11.0 Hypertensive heart disease with heart failure; I50.22 Chronic systolic (congestive) heart failure; N18.9 Chronic kidney disease, unspecified; I42.8 Other cardiomyopathies; I25.10 Atherosclerotic heart disease of native coronary artery without angina pectoris; F17.209 Nicotine dependence, unspecified, with unspecified nicotine-induced disorders; F41.9 Anxiety disorder, unspecified; J44.9 Chronic obstructive pulmonary disease, unspecified; Z79.82 Long term (current) use of aspirin; Z79.899 Other long term (current) drug therapy; Z82.49 Family history of ischemic heart disease and other diseases of the circulatory system ==

== ENCOUNTER 2021-08-30 13:58 | Inpatient (IN) | payer OTHER ==
[~2021-08-30] VITALS: Ht 175.3 cm; Wt 82.7 kg
[2021-08-30] VITALS (17 sets, daily range): BP systolic 97–122; BP diastolic 50–81
--- NOTE | ~2021-08-30 | HC ---
[facility] [place] [address] CONSULTATION Name: CORIE MELENDEZ Room #: 245-P [facility] IN ..#: [id number] Admission: 08/30/21 Attend Phys: Gardenia Sorensen MD Discharge: Date of : 58 Report #: [id number] THIS REPORT FOR: cc: Tariq Blackwood Simon FNP Brown, Randal L. MD ~ DATE OF SERVICE: 08/31/2021 GI CONSULT HISTORY OF PRESENT ILLNESS: The patient is a very pleasant 61-year-old male who has been asked to see for further evaluation, have significantly elevated liver tests. Apparently, he presented with acute renal failure, severe hyperkalemia, sepsis and acidosis. We are asked to see him for profoundly elevated liver tests. His medical history includes COPD, alcoholic cardiomyopathy, CVA, noncompliance with medicine, hypertension, mitral regurgitation and pulmonary hypertension. He became ill approximately 72 hours ago, was not seen until today, but was found to be poorly responsive; however, did respond to fluid resuscitation. Other medical histories include of that mentioned above. ALLERGIES: HE IS NOT ALLERGIC TO ANY MEDICATIONS. FAMILY HISTORY: Detailed in the chart. SOCIAL HISTORY: Detailed in the chart. REVIEW OF SYSTEMS: Denies head, eyes, ears, nose, or throat complaints. Denies chest pain or chest palpitations, chest pressure, cough, shortness of breath, wheezing, genitourinary, musculoskeletal or neuropsychiatric complaints. PHYSICAL EXAMINATION: VITAL SIGNS: Afebrile, vital signs are stable. HEENT: Nonicteric. NECK: No JVD, thyromegaly or bruits. CARDIOVASCULAR: Regular. LUNGS: Clear anteriorly. ABDOMEN: Soft, nondistended. EXTREMITIES: Deferred. NEUROLOGIC: Deferred. RECTAL: Deferred. PERTINENT LABS: Hemoglobin 15.6, platelet count 130. Blood gas, pH was 7.15, pCO2 of 27 and his O2 is 430.9 during oxygen resuscitation. Serum chemistry: Potassium 6.6, BUN 73, creatinine 4.9, glucose 112, calcium 6.3. His total bilirubin was 2.1, AST 5860, ALT 4316. His INR was 3.35. His COVID was [facility] [address] [place] [address] CONSULTATION Name: CORIE MELENDEZ Room #: 245-P [facility] IN [facility].#: [id number] Admission: 08/30/21 Attend Phys: Gardenia Sorensen MD Discharge: Date of : 58 Report #: [id number] negative. He had a CT of the abdomen and pelvis, which revealed mild atherosclerosis, moderate right pleural effusion, small volume ascites, mild cardiomegaly and inguinal hernias, right and left, nonobstructive. ASSESSMENT AND PLAN: In summary, the patient has what appears to be shocked liver as a result of hypotension and his other acute comorbid as well as chronic comorbid conditions. I expect significant improvement of his LFTs over the course of the next several days and upon correction of his underlying sepsis and hypotension. We will follow. Thank you for allowing us to participate in the care of this nice man. By: 1003 1428 Nas Ordonez MD /nt
--- NOTE | ~2021-08-30 | EMS ---
[facility] [address] [place] [address] EMS Patient Care Report Name: LOCO MELENDEZ Room #: 447-P [facility] IN M.R.#: [id number] Admission: 08/30/21 Attend Phys: Gardenia Sorensen MD Discharge: 08/31/21 Date of : 58 Report #: [id number] THIS REPORT FOR: //name// Report Transmitted: 09/01/2021 14:26 EMS Care Summary [facility] [place] Incident 3119 @ 08/30/2021 13:00 Incident Location [id number] [place], [place] [id number] Patient loco melendez Male, 61 Years 1960 Patient Address [address] [place], [place] [id number] Patient History Chronic Obstructive Pulmonary Disease (COPD),Congestive Heart Failure (CHF),Unspecified abdominal hernia,Dysthymic disorder,Anxiety disorder, unspecified, Patient Allergies No known allergies, Patient Medications Citalopram, Furosemide, Metoprolol, Chief Complaint Respiratory distress Disposition Transported Lights/[place] Dis[facility] Reason Breathing Problem Transported To [facility] Narrative dispatched to the above address for a soa. while responding to the call, dispatch imfomred us that our pt has passed out, but is now alert. at our [address] [address] EMS Patient Care Report Name: LOCO MELENDEZ Room #: 447-P DIS IN .R.#: [id number] Admission: 08/30/21 Attend Phys: Gardenia Sorensen MD Discharge: 08/31/21 Date of : 58 Report #: [id number] arrival to the scene, we were met by pt out side. pt imfrmoed us that it may be easier to get the cot in the house from the back. pt stated pt has copd and chf. he is having a hard time breathing. he has taken all of his medications today, however they are not helping. pt has a history of having covid 19 but it has cleared up with a neg test as well. at our arrival to pt side we came to find this. 61 y/o m sitting up right in the tri pod position. pt is a/o x 4 gcs 15. pt stated in one to two word sentences that his chf is bad today. pt v/s were taken, with spo2 placed. pt was placed on the four lead ecg, with a 12 lead ekg obtained. pt was placed on o2 by non re breather mask. pt was assisted over to the awaiting stair chair, and was secured. pt then had an episode of syncope. pt regained his loc. pt was moved out to the awaiting cot. pt was lifted on to the awaiting cot, and was secured. the cot was moved to the ambulance, and was secured. pt was placed on cpap at 7.5 peep. pt stated he is feeling better. pt was immured that the crew believes he should go to a closer hospital, due to his status. pt stated no he would like to go to [facility]. a non emergency transport was started to [facility], with report called in. assessment see flow chart rx see flow chart transport pt rested on the cot during transport. pt had a second episode of syncope. we were unable to find an iv in pt arms. approx 4 mins was used to find an iv. pt had a third episode of syncope. an ej iv was placed on the left side. a blood draw was preformed, along with a d-stick. transport was upgraded to emergency due to pt status, and increasing traffic not allowing us to transport at [place]. pt had no other changes. pt was monitored for any changes. destination pt arrived stable to [facility]. where he was wheeled in on the cot. where staff informed us to go to ed bed 12. pt was wheeled on the cot to ed bed 12. where he was lifted over to the ed bed. where nursing staff took over care, with a full report given. Initial Vitals @13:13SpO2: 76, @13:14SpO2: 82, @13:49SpO2: 66, @13:50SpO2: 44, @13:53SpO2: 69, @13:54SpO2: 39, @13:14 @13:15 @13:07P: 79,R: 44, @13:36P: 80,R: 45, @13:08AbVL1: 14, @13:60AcMG3: 10, @13:88NdGF5: 11, @13:82YiWL1: 11, @13:37MxFT2: 9, @13:83XuYU8: 8, @13:79AqQR5: 8, [facility] [address] [place] [address] EMS Patient Care Report Name: LOCO MELENDEZ Room #: 447-P [facility] IN M.R.#: [id number] Admission: 08/30/21 Attend Phys: Gardenia Sorensen MD Discharge: 08/31/21 Date of : 58 Report #: [id number] @13:90VyUP6: 11, @13:00SoPO3: 9, @13:46YoWE7: 6, @13:11JzNO0: 9, @13:51IjEM3: 9, @13:67GbRZ1: 9, @13:33VlRR3: 9, @13:67FoGO3: 8, @13:18RdCF0: 8, @13:07GCS: 15, @13:36GCS: 15, @13:37Glucose: 89, Assessments @13:07MENTAL:SKIN:HEENT:LUNG SOUNDS:ABDOMEN:PELVIS//GI:EXTREMITIES:PULSE:NEURO: Impression Congestive heart failure (CHF) Procedures @13:34 Oxygen Complications: , Response: Improved @13:37 IV Therapy - cc () Site: Antecubital-Left Response: UnchangedSucceeded @13:37 Blood Draw - cc () Response: UnchangedSucceeded @13:29 ETCO2 digital capnography Response: UnchangedSucceeded @13:34 ETCO2 digital capnography Response: UnchangedSucceeded @13:34 ETCO2 digital capnography Response: UnchangedSucceeded @13:36 ETCO2 digital capnography Response: UnchangedSucceeded @13:37 ETCO2 digital capnography Response: UnchangedSucceeded @13:39 ETCO2 digital capnography Response: UnchangedSucceeded @13:39 ETCO2 digital capnography Response: UnchangedSucceeded @13:40 ETCO2 digital capnography Response: UnchangedSucceeded @13:43 ETCO2 digital capnography Response: UnchangedSucceeded @13:44 ETCO2 digital capnography Response: UnchangedSucceeded @13:48 ETCO2 digital capnography Response: UnchangedSucceeded @13:49 ETCO2 digital capnography Response: UnchangedSucceeded @13:49 ETCO2 digital capnography Response: UnchangedSucceeded @13:50 ETCO2 digital capnography Response: UnchangedSucceeded @13:50 ETCO2 digital capnography Response: UnchangedSucceeded @13:53 ETCO2 digital capnography Response: UnchangedSucceeded @13:14 12-Lead ECG Response: UnchangedSucceeded @13:15 12-Lead ECG Response: UnchangedSucceeded Timeline 12:59,Dispatch Notified [address] [address] EMS Patient Care Report Name: LOCO MELENDEZ Room #: 447-P [facility] IN ..#: [id number] Admission: 08/30/21 Attend Phys: Gardenia Sorensen MD Discharge: 08/31/21 Date of : 58 Report #: [id number] 12:59,Psap Call 13:00,Call Received 13:00,Dispatched 13:00,En Route 13:05,On Scene 13:07,At Patient 13:07,BP: / M,PULSE: 79,RR: 44 R,SPO2: Ox,ETCO2: ,BG: ,PAIN: ,GCS: , 13:07,BP: / M,PULSE: ,RR: R,SPO2: Ox,ETCO2: ,BG: ,PAIN: ,GCS: 15, 13:13,BP: / M,PULSE: ,RR: R,SPO2: 76 Ox,ETCO2: ,BG: ,PAIN: ,GCS: , 13:14,12-Lead ECG,Response: UnchangedSucceeded, 13:14,BP: / M,PULSE: ,RR: R,SPO2: 82 Ox,ETCO2: ,BG: ,PAIN: ,GCS: , 13:14,BP: / M,PULSE: ,RR: R,SPO2: Ox,ETCO2: ,BG: ,PAIN: ,GCS: , 13:15,12-Lead ECG,Response: UnchangedSucceeded, 13:15,BP: / M,PULSE: ,RR: R,SPO2: Ox,ETCO2: ,BG: ,PAIN: ,GCS: , 13:29,ETCO2 digital capnography,Response: UnchangedSucceeded, 13:29,BP: / M,PULSE: ,RR: R,SPO2: Ox,ETCO2: 14 ,BG: ,PAIN: ,GCS: , 13:34,ETCO2 digital capnography,Response: UnchangedSucceeded, 13:34,ETCO2 digital capnography,Response: UnchangedSucceeded, 13:34,BP: / M,PULSE: ,RR: R,SPO2: Ox,ETCO2: 10 ,BG: ,PAIN: ,GCS: , 13:34,BP: / M,PULSE: ,RR: R,SPO2: Ox,ETCO2: 11 ,BG: ,PAIN: ,GCS: , 13:34,Depart Scene 13:34,Oxygen Complications: ,,Response: Improved 13:36,ETCO2 digital capnography,Response: UnchangedSucceeded, 13:36,BP: / M,PULSE: ,RR: R,SPO2: Ox,ETCO2: 11 ,BG: ,PAIN: ,GCS: , 13:36,BP: / M,PULSE: 80,RR: 45 R,SPO2: Ox,ETCO2: ,BG: ,PAIN: ,GCS: , 13:36,BP: / M,PULSE: ,RR: R,SPO2: Ox,ETCO2: ,BG: ,PAIN: ,GCS: 15, 13:37,ETCO2 digital capnography,Response: UnchangedSucceeded, 13:37,BP: / M,PULSE: ,RR: R,SPO2: Ox,ETCO2: 9 ,BG: ,PAIN: ,GCS: , 13:37,IV Therapy - cc Site: Antecubital-Left,Response: UnchangedSucceeded, 13:37,Blood Draw - cc Site: ,Response: UnchangedSucceeded, 13:37,BP: / M,PULSE: ,RR: R,SPO2: Ox,ETCO2: ,B,PAIN: ,GCS: , 13:39,ETCO2 digital capnography,Response: UnchangedSucceeded, 13:39,ETCO2 digital capnography,Response: UnchangedSucceeded, 13:39,BP: / M,PULSE: ,RR: R,SPO2: Ox,ETCO2: 8 ,BG: ,PAIN: ,GCS: , 13:39,BP: / M,PULSE: ,RR: R,SPO2: Ox,ETCO2: 8 ,BG: ,PAIN: ,GCS: , 13:40,ETCO2 digital capnography,Response: UnchangedSucceeded, 13:40,BP: / M,PULSE: ,RR: R,SPO2: Ox,ETCO2: 11 ,BG: ,PAIN: ,GCS: , 13:43,ETCO2 digital capnography,Response: UnchangedSucceeded, 13:43,BP: / M,PULSE: ,RR: R,SPO2: Ox,ETCO2: 9 ,BG: ,PAIN: ,GCS: , 13:44,ETCO2 digital capnography,Response: UnchangedSucceeded, 13:44,BP: / M,PULSE: ,RR: R,SPO2: Ox,ETCO2: 6 ,BG: ,PAIN: ,GCS: , 13:48,ETCO2 digital capnography,Response: UnchangedSucceeded, 13:48,BP: / M,PULSE: ,RR: R,SPO2: Ox,ETCO2: 9 ,BG: ,PAIN: ,GCS: , 13:49,ETCO2 digital capnography,Response: UnchangedSucceeded, 13:49,ETCO2 digital capnography,Response: UnchangedSucceeded, 13:49,BP: / M,PULSE: ,RR: R,SPO2: 66 Ox,ETCO2: ,BG: ,PAIN: ,GCS: , [address] [place] [address] EMS Patient Care Report Name: LOCO MELENDEZ Room #: 447-P [facility] IN [facility]#: [id number] Admission: 08/30/21 Attend Phys: Gardenia Sorensen MD Discharge: 08/31/21 Date of : 58 Report #: [id number] 13:49,BP: / M,PULSE: ,RR: R,SPO2: Ox,ETCO2: 9 ,BG: ,PAIN: ,GCS: , 13:49,BP: / M,PULSE: ,RR: R,SPO2: Ox,ETCO2: 9 ,BG: ,PAIN: ,GCS: , 13:50,ETCO2 digital capnography,Response: UnchangedSucceeded, 13:50,ETCO2 digital capnography,Response: UnchangedSucceeded, 13:50,BP: / M,PULSE: ,RR: R,SPO2: 44 Ox,ETCO2: ,BG: ,PAIN: ,GCS: , 13:50,BP: / M,PULSE: ,RR: R,SPO2: Ox,ETCO2: 9 ,BG: ,PAIN: ,GCS: , 13:50,BP: / M,PULSE: ,RR: R,SPO2: Ox,ETCO2: 8 ,BG: ,PAIN: ,GCS: , 13:53,ETCO2 digital capnography,Response: UnchangedSucceeded, 13:53,BP: / M,PULSE: ,RR: R,SPO2: 69 Ox,ETCO2: ,BG: ,PAIN: ,GCS: , 13:53,BP: / M,PULSE: ,RR: R,SPO2: Ox,ETCO2: 8 ,BG: ,PAIN: ,GCS: , 13:54,BP: / M,PULSE: ,RR: R,SPO2: 39 Ox,ETCO2: ,BG: ,PAIN: ,GCS: , 13:55,At Destination 14:59,Call Closed Disclaimer v1.1 Copyright 2021 [email or web address], [employer] This EMS Care Summary contains data elements from the applicable legal record (which may be displayed differently). It is designed to provide pertinent information for the following purposes: continuity of care, clinical quality, and state data reporting. The complete legal record is available to ED staff and administrators of the receiving hospital in [employer] Patient Tracker. All data is provided "as is."
[2021-08-30 14:33] LABS: HEMATOCRIT 50.9 % (42.0-52.0); HEMOGLOBIN 15.6 gm/dL (14.0-18.0); MCH 29.3 pg (26.0-34.0); MCHC 30.6 g/dL (28.0-37.0); MCV 95.7 fL (80.0-100.0); PLATELET COUNT 130 thou/uL (150-400); RBC 5.32 mil/uL (4.50-6.00); RDW 16.9 % (10.5-14.5); WBC 20.8 thou/uL (4.0-11.0)
[2021-08-30 14:45] LABS: BE(vivo) -17.7 mmol/L (-2 to +3); HCO3 9.4 mmol/L (22.0-26.0); PO2 430.9 mmHg (80.0-100.0); pH 7.159 (7.360-7.450); sO2 99.8 % (92.0-98.0)
[2021-08-30 15:19] LABS: ABSOLUTE NEUTROPHILS 17.9 thou/uL (1.4-8.2)
[2021-08-30 15:26] LABS: LARGE PLATELETS OCCASIONAL
[2021-08-30 15:33] LABS: URINE BLOOD 3+ (Negative); URINE COLOR YELLOW; URINE GLUCOSE-RANDOM* TRACE (Negative); URINE KETONES TRACE (Negative); URINE PROTEIN (DIPSTICK) 2+ (Negative); URINE SPECIFIC GRAVITY >= 1.030 (1.005-1.035)
[2021-08-30 15:34] LABS: ICTOTEST (BILI CONFIRMATORY) Negative (Negative); URINE BILIRUBIN NEGATIVE (Negative); URINE CLARITY CLOUDY; URINE LEUKOCYTES-REFLEX 1+ (Negative); URINE NITRITE-REFLEX POSITIVE (Negative)
[2021-08-30 15:41] LABS: BACTERIA-REFLEX >30 Many /HPF (None Seen); CASTS None Seen /LPF (None Seen); CRYSTALS None Seen /LPF (None Seen); SQUAMOUS 0-3 Few /LPF (0-3); URINE RBC >20 Many /HPF (NONE SEEN); URINE WBC-REFLEX 6-15 Few /HPF (0-5)
[2021-08-30 15:41] LABS: APTT 38.5 Seconds (24.5-32.8); INR 3.35; PROTIME 34.5 Seconds (10.5-12.1)
[2021-08-30 15:55] LABS: ALBUMIN 3.4 g/dL (3.4-5.0); CREATININE 5.1 mg/dL (0.7-1.3); TOTAL BILIRUBIN 2.6 mg/dL (0.2-1.0); TOTAL PROTEIN 6.4 g/dL (6.4-8.2)
[2021-08-30 16:01] LABS: POTASSIUM 7.8 mmol/L (3.5-5.1)
[2021-08-30 20:00] LABS: ALBUMIN 3.5 g/dL (3.4-5.0); CALCIUM 8.3 mg/dL (8.5-10.1); CREATININE 4.9 mg/dL (0.7-1.3); PHOSPHORUS 10.6 mg/dL (2.5-4.9)
[2021-08-30 20:18] LABS: BE(vivo) -11.8 mmol/L (-2 to +3); HCO3 12.1 mmol/L (22.0-26.0); PO2 196.5 mmHg (80.0-100.0); sO2 99.3 % (92.0-98.0)
[2021-08-30 20:20] LABS: PCO2 24.3 mmHg (35.0-45.0); pH 7.316 (7.360-7.450)
[2021-08-30 20:21] LABS: POTASSIUM 7.4 mmol/L (3.5-5.1)
--- NOTE | 2021-08-30 22:00 | NUR ---
PT ARRIVED FROM ER VIA CART. PT ARRIVED ON A NRB. SIGNIFICANT OTHER WAS WITH PT, SHE WAS GIVEN ALL INFORMATION AND TOLD ABOUT VISITING HOURS. PT WAS ATTACHED TO ICU MONITOR AND ASSESSED PER ICU PROTOCOL. PT C/O FEELING LIKE HE CANT BREATH. DR. NASSAR WAS CALLED AT 195 AND UPDATED ON PTS CONDITION. MAK TIRADO CALLED AT 2012 TO UPDATE ON PTS CONDITION AND LABS. CRITICAL LABS WERE CALLED TO DR. CASTANEDA AND HE WAS UPDATED ON PTS CONDITION. PT RESTING ON BIPAP NOW.
[2021-08-31] VITALS (35 sets, daily range): BP systolic 80–121; BP diastolic 24–81
[2021-08-31 05:54] LABS: ABSOLUTE NEUTROPHILS 17.2 thou/uL (1.4-8.2); BASOPHILS 0.6 % (0.0-2.0); HEMATOCRIT 45.4 % (42.0-52.0); HEMOGLOBIN 14.6 gm/dL (14.0-18.0); LYMPHOCYTES 3.2 % (24.0-44.0); MCH 29.9 pg (26.0-34.0); MCHC 32.1 g/dL (28.0-37.0); MCV 93.4 fL (80.0-100.0); MONOCYTES 5.4 % (1.0-8.0); PLATELET COUNT 107 thou/uL (150-400); POLYS 90.8 % (36.0-66.0); RBC 4.86 mil/uL (4.50-6.00); RDW 15.9 % (10.5-14.5); WBC 18.9 thou/uL (4.0-11.0)
[2021-08-31 06:24] LABS: ALBUMIN 3.1 g/dL (3.4-5.0); CREATININE 4.9 mg/dL (0.7-1.3); MAGNESIUM 2.3 mg/dL (1.8-2.4); PHOSPHORUS 8.9 mg/dL (2.5-4.9); TOTAL BILIRUBIN 2.1 mg/dL (0.2-1.0); TOTAL PROTEIN 5.9 g/dL (6.4-8.2)
[2021-08-31 06:35] LABS: CALCIUM 6.3 mg/dL (8.5-10.1)
[2021-08-31 06:56] LABS: POTASSIUM 6.6 mmol/L (3.5-5.1)
--- NOTE | 2021-08-31 12:57 | EKG ---
[place] [address] [facility] [place] [address] ELECTROCARDIOGRAM REPORT Name: CORIE MELENDEZ Room #: 245-P ADM IN M.R.#: [id number] Admission: 08/30/21 Attend Phys: Gardenia Sorensen MD Discharge: Date of : 58 Report #: [id number] 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1960 Requested By: Grover Santos Order Number: [id number] MD: Portillo Powers Measurements Intervals [place] Rate: 75 P: 117 RI: 235 QRS: -83 QRSD: 151 T: 91 QT: 501 QTc: 560 Interpretive Statements Sinus rhythm Prolonged RI interval Nonspecific IVCD with LAD Inferior infarct, old Compared to ECG 04/19/2021 21:40:35 First degree AV block now present Anterolateral T wave inversion is no longer present Electronically Signed On 08-31-2021 12:57:11 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
--- NOTE | 2021-08-31 13:04 | EKG ---
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 : 1960 Requested By: Gardenia Sorensen Order Number: [id number] MD: Portillo Powers Measurements Intervals [place] Rate: 86 P: 9 AR: 209 QRS: -73 QRSD: 115 T: 118 QT: 447 QTc: 535 Interpretive Statements Sinus rhythm Nonspecific IVCD with LAD Inferior infarct, old Abnrm T, consider ischemia, anterolateral lds Compared to ECG 08/30/2021 14:02:45 QRS duration has shortened Electronically Signed On 08-31-2021 13:04:19 APRON WORKER by Portillo Powers [email or web address] <ELECTRONICALLY SIGNED> By: Portillo Powers MD, [facility] 08/31/21 1304 1117 1117 Portillo Powers MD, [facility] /EPI
[2021-08-31 13:21] LABS: CALCIUM 6.9 mg/dL (8.5-10.1); CREATININE 5.1 mg/dL (0.7-1.3)
[2021-08-31 13:30] LABS: POTASSIUM 6.9 mmol/L (3.5-5.1)
--- NOTE | 2021-09-01 01:25 | NUR ---
PT ARRIVED TO UNIT FROM ICU AROUND 2039. PT NOTABLY AGITATED AND RESTLESS. COMFORT CARE ORDERS REVIEWED. PRN MEDICATIONS GIVEN TO PROMOTE COMFORT. PT REPOSITIONED AND FAN ON TO IMPROVE SOA. 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 PT PASSED AT 2335- 2RN VERIFICATION PERFORMED. ADMITING PHYSICIAN, FAMILY, AND APPROPRIATE PERSONS NOTIFIED. PT REMAINS IN ROOM WITH FAMILY VISITING
== END 2021-08-31 23:35 | DRG 871 ==
LOC: ER 13:58 → EROBS 17:16 → ICU 19:49 → 4S 08-31 20:09
PROVIDERS: Emergency Medicine; Hospitalist; Pediatrics; ADMIT Internal Medicine; ATTEND Internal Medicine
PROC: 5A09357 Assistance with Respiratory Ventilation, Less than 24 Consecutive Hours, Continuous Positive Airway Pressure (ICD-10-PCS; principal; 2021-08-30)
PROC: 5A09357 Assistance with Respiratory Ventilation, Less than 24 Consecutive Hours, Continuous Positive Airway Pressure (ICD-10-PCS; 2021-08-31)
DX: A41.89 Other specified sepsis (principal); J96.01 Acute respiratory failure with hypoxia; R65.21 Severe sepsis with septic shock; K72.00 Acute and subacute hepatic failure without coma; E43 Unspecified severe protein-calorie malnutrition; J18.9 Pneumonia, unspecified organism; N17.9 Acute kidney failure, unspecified; N39.0 Urinary tract infection, site not specified; J44.0 Chronic obstructive pulmonary disease with (acute) lower respiratory infection; I13.0 Hypertensive heart and chronic kidney disease with heart failure and stage 1 through stage 4 chronic kidney disease, or unspecified chronic kidney disease; J44.1 Chronic obstructive pulmonary disease with (acute) exacerbation; R18.8 Other ascites; B17.9 Acute viral hepatitis, unspecified; I74.3 Embolism and thrombosis of arteries of the lower extremities; I42.8 Other cardiomyopathies; F41.9 Anxiety disorder, unspecified; E87.5 Hyperkalemia; F43.10 Post-traumatic stress disorder, unspecified; I34.0 Nonrheumatic mitral (valve) insufficiency; I50.810 Right heart failure, unspecified; F17.210 Nicotine dependence, cigarettes, uncomplicated; R94.31 Abnormal electrocardiogram [ECG] [EKG]; D64.9 Anemia, unspecified; D69.6 Thrombocytopenia, unspecified; N18.30 Chronic kidney disease, stage 3 unspecified; I27.20 Pulmonary hypertension, unspecified; J44.9 Chronic obstructive pulmonary disease, unspecified; Z20.822 Contact with and (suspected) exposure to COVID-19; Z79.899 Other long term (current) drug therapy; Z87.01 Personal history of pneumonia (recurrent); Z86.73 Personal history of transient ischemic attack (TIA), and cerebral infarction without residual deficits; Z79.82 Long term (current) use of aspirin; Z82.49 Family history of ischemic heart disease and other diseases of the circulatory system; Z68.26 Body mass index [BMI] 26.0-26.9, adult; Z86.74 Personal history of sudden cardiac arrest
CPT/HCPCS: 10078; 10102